=== PATIENT | male | born 1965 | race Caucasian/White ===

== ENCOUNTER 2017-04-23 08:07 | Day surgery (SDC) | payer OTHER ==
[2017-04-21 12:01] LABS: APPEARANCE,URINE CLEAR; BILIRUBIN,URINE NEGATIVE (NEGATIVE); GLUCOSE, URINE NEGATIVE (NEGATIVE); KETONES,URINE NEGATIVE (NEGATIVE); LEUKOCYTE ESTERASE,URINE NEGATIVE (NEGATIVE); NITRITE,URINE NEGATIVE (NEGATIVE); PROTEIN,URINE NEGATIVE (NEGATIVE); URINE SPECIFIC GRAVITY 1.013; UROBILINOGEN,URINE NEGATIVE mg/dL (<2.0)
[2017-04-21 12:09] LABS: ABSOLUTE EOSINOPHILS # (AUTO) 0.4 10^3/uL (0.0-0.6); ABSOLUTE LYMPHOCYTES (AUTO) 1.8 10^3/uL (0.5-4.7); ABSOLUTE MONOCYTES (AUTO) 0.6 10^3/uL (0.1-1.4); ABSOLUTE NEUT (AUTO) 4.6 10^3/uL (1.7-8.2); BASOPHILS % (AUTO) 0.3 % (0-2); EOSINOPHILS % (AUTO) 4.9 % (0-6); HEMATOCRIT 40.4 % (37.9-51.0); HEMOGLOBIN 13.9 g/dL (13.5-17.0); HGB HCT DIFFERENCE 1.3; LYMPHOCYTES % (AUTO) 24.8 % (13-45); MEAN CORPUSCULAR HEMOGLOBIN 31.4 pg (27.0-33.4); MEAN CORPUSCULAR HGB CONC 34.5 g/dL (32.0-36.0); MEAN CORPUSCULAR VOLUME 91 fl (80-97); MONOCYTES % (AUTO) 8.6 % (3-13); RED BLOOD COUNT 4.44 10^6/uL (4.35-5.55); RED CELL DISTRIBUTION WIDTH 13.5 % (11.5-14.0); SEGMENTED NEUTROPHILS % (AUTO) 61.4 % (42-78); WHITE BLOOD COUNT 7.5 10^3/uL (4.0-10.5)
[2017-04-21 12:33] LABS: BLOOD UREA NITROGEN 16 mg/dL (7-20); CREATININE RESULT 0.83 mg/dL (0.52-1.25); GLUCOSE 92 mg/dL (75-110)
[2017-04-21 12:34] LABS: ANION GAP 11 (5-19); CARBON DIOXIDE 28 mmol/L (22-30); CHLORIDE 103 mmol/L (98-107); POTASSIUM 4.9 mmol/L (3.6-5.0); SODIUM 142.4 mmol/L (137-145)
--- NOTE | 2017-04-21 12:58 | EKG REPORT ---
SEVERITY:- NORMAL ECG - SINUS RHYTHM : Confirmed by: Reginaldo López MD 21-Apr-2017 12:57:43
--- NOTE | 2017-04-21 15:49 | RADIOLOGY REPORT (SQ) ---
EXAM DESCRIPTION: CHEST PA/LATERAL COMPLETED DATE/TIME: 04/21/2017 11:17 am REASON FOR STUDY: PRE OP COMPARISON: April 2014 EXAM PARAMETERS: NUMBER OF VIEWS: two views TECHNIQUE: Digital Frontal and Lateral radiographic views of the chest acquired. RADIATION DOSE: NA LIMITATIONS: none FINDINGS: LUNGS AND PLEURA: No opacities, masses or pneumothorax. No pleural effusion. MEDIASTINUM AND HILAR STRUCTURES: No masses or contour abnormalities. HEART AND VASCULAR STRUCTURES: Heart normal size. No evidence for failure. BONES: No acute findings. HARDWARE: None in the chest. OTHER: No other significant finding. IMPRESSION: NO SIGNIFICANT RADIOGRAPHIC FINDING IN THE CHEST. TECHNICAL DOCUMENTATION: JOB ID: [id number] [employer]- All Rights Reserved
[~2017-04-23 08:07] MED LIST: CEFAZOLIN 2 GM/D5W RTU 2 GM/50 ML RTUPB IV PRN; LACTATED RINGERS 1000 ML IV PRN; LIDOCAINE 0.5% INJ-PF (5 MG/ML) 50 ML SDV SUBCUT PRN
[2017-04-23] MEDS ORDERED: LIDOCAINE 1% INJ-PF (10 MG/ML) 30 ML SDV ONE (09:30)
[2017-04-23] MEDS ORDERED: BUPIVACAINE HCL 0.5%-EPI 1:200000 INJ/PF 30 ML VIAL ONE (09:30)
[2017-04-23] MEDS ORDERED: PROPOFOL INJ 200 MG/20 ML VIAL IV ONE (10:06)
[2017-04-23] MEDS ORDERED: MIDAZOLAM 2 MG/2 ML INJ ONE (10:06)
[2017-04-23] MEDS ORDERED: ACETAMINOPHEN 100 ML IV ONE (10:07)
[2017-04-23] MEDS ORDERED: KETOROLAC TROMETHAMINE 60 MG/2 ML SDV ONE (10:07)
[2017-04-23] MEDS ORDERED: FENTANYL CITRATE INJ/PF 100 MCG/2 ML AMPUL IV PRN ×3 (10:23)
[2017-04-23] MEDS ORDERED: MEPERIDINE HCL/PF INJ 25 MG/1 ML DISP.SYRIN IV PRN (10:23)
[2017-04-23] MEDS ORDERED: DIPHENHYDRAMINE HCL 50 MG/ML VIAL IV PRN (10:23)
[2017-04-23] MEDS ORDERED: OXYCODONE-ACETAMINOPHEN 5-325 MG TABLET PO PRN ×2 (10:23)
[2017-04-23] MEDS ORDERED: PROMETHAZINE HCL INJ 25 MG/1 ML VIAL IV PRN ×2 (10:23)
[2017-04-23] MEDS ORDERED: MORPHINE SULFATE 10 MG/ML INJ IV PRN (10:23)
--- NOTE | 2017-04-23 10:47 | Operative Report ---
Operative Report DATE OF SURGERY: 04/23/17 PREOPERATIVE DIAGNOSIS: Left medial meniscal tear POSTOPERATIVE DIAGNOSIS: Left medial meniscal tear. 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 Left medial femoral condyle chondral injury, 2 cm. Intact ACL. Left lateral meniscal tear. Grade 1-2 chondral malacia lateral compartment. Grade 2-3 chondromalacia the patellofemoral compartment OPERATION: Left arthroscopic partial medial and lateral meniscectomy, microfracture medial femoral condyle SURGEON: AURELIO HARVEY ANESTHESIA: LMAC PROCEDURE: The patient supine in operating table the left lower extremities prepped and draped in sterile fashion. The knee is insufflated with completion Marcaine, Xylocaine, and epinephrine for intraoperative anesthesia and for postoperative analgesia. Subsequently medial and lateral infrapatellar portals are created for the introduction of arthroscope and debridement instrumentation. Using combination basket Villa, mechanical shaver, and electric frequency ablation probable partial medial meniscectomy was performed from approximately 8:00 to 12 :00 in the face of the dial. Partial lateral meniscectomy was performed in a similar fashion from approximately 5:00 to 12:00 in the face of the dial. Lastly the chondral injury on the medial femoral condyle is debrided of loose fragments leaving approximately a 2 cm chondral defect. Microfracture awls then used to punch through the subchondral bone. The pressure in the knee is deflated to ensure that the microfracture led to bleeding which it did. Subsequently the joint is again examined in systematic fashion with no new findings. The instrumentation was removed. The portals are closed with interrupted nylon. A sterile compressive dressing was applied. The patient returned to PACU in satisfactory condition.
[2017-04-23] MEDS ORDERED: TRAMADOL HCL 50 MG TABLET PO PRN (11:01)
[2017-04-23] MEDS ORDERED: ONDANSETRON 4 MG TAB.RAPDIS PO PRN (11:06)
[2017-04-23 14:22] VITALS: BP 127/84
== END 2017-04-23 12:50 | disposition home or self-care (01) ==
LOC: OROUT 08:07
PROVIDERS: ATTEND Orthopaedic Surgery
PROC: 0SBD4ZZ Excision of Left Knee Joint, Percutaneous Endoscopic Approach (ICD-10-PCS; 2017-04-23)
PROC: 0SQD4ZZ Repair Left Knee Joint, Percutaneous Endoscopic Approach (ICD-10-PCS; 2017-04-23)
PROC: 0SBD4ZZ Excision of Left Knee Joint, Percutaneous Endoscopic Approach (ICD-10-PCS; principal; 2017-04-23 10:15)
DX: M23.201 Derangement of unspecified lateral meniscus due to old tear or injury, left knee (principal); M23.204 Derangement of unspecified medial meniscus due to old tear or injury, left knee; M22.42 Chondromalacia patellae, left knee; E78.5 Hyperlipidemia, unspecified; M17.0 Bilateral primary osteoarthritis of knee; M19.049 Primary osteoarthritis, unspecified hand; Z79.899 Other long term (current) drug therapy; Z88.1 Allergy status to other antibiotic agents
CPT/HCPCS: 93005; 36415; 85025; 80048; 81001; 71020; 93010; 29880; 29879; J2250; J3490 ×2; J1885; J2704; J0690; J0131; 1400